=== PATIENT | female | born 1940 | race Hispanic/Latino ===

== ENCOUNTER 2018-12-16 09:30 | Outpatient (CLI) | payer MEDICARE ==
[2018-12-16 09:52] LABS: Hematocrit 41.2 % (30.3-42.9); Hemoglobin 13.7 gm/dl (10.1-14.3); Mean Corpuscular HGB Conc 33 % (30-34); Mean Corpuscular Volume 88 fl (79-97); Platelet Count 272 K/mm3 (140-440); Red Blood Count 4.67 M/mm3 (3.65-5.03); Red Cell Distribution Width 14.1 % (13.2-15.2)
[2018-12-16 10:14] LABS: Erythrocyte Sedimentation Rate 15 mm/Hr (0-20)
[2018-12-16 10:21] LABS: Alanine Aminotransferase 19 units/L (7-56); Albumin 4.5 g/dL (3.9-5); BUN/Creatinine Ratio 20; Blood Urea Nitrogen 14 mg/dL (7-17); Calcium 9.2 mg/dL (8.4-10.2); Hemolysis Index 2
== END 2018-12-16 09:31 | disposition home or self-care (01) ==
LOC: LAB 09:30
PROVIDERS: ATTEND Specialist
DX: M31.6 Other giant cell arteritis (principal)
CPT/HCPCS: 36415; 80053; 85027; 85652

== ENCOUNTER 2021-06-16 10:28 | Outpatient (CLI) | payer MEDICARE ==
[2021-06-16 11:10] LABS: Basophils % (Auto) 0.6 % (0.0-1.8); Eosinophils % (Auto) 0.3 % (0.0-4.3); Hematocrit 42.7 % (30.3-42.9); Hemoglobin 13.6 gm/dl (10.1-14.3); Lymphocytes % (Auto) 29.7 % (13.4-35.0); Mean Corpuscular HGB Conc 32 % (30-34); Mean Corpuscular Volume 87 fl (79-97); Monocytes # (Auto) 0.4 K/mm3 (0.0-0.8); Monocytes % (Auto) 6.4 % (0.0-7.3); Platelet Count 376 K/mm3 (140-440); Red Blood Count 4.89 M/mm3 (3.65-5.03); Red Cell Distribution Width 14.5 % (13.2-15.2)
[2021-06-16 11:28] LABS: Alanine Aminotransferase 18 units/L (7-56); Albumin 4.5 g/dL (3.9-5); BUN/Creatinine Ratio 18; Blood Urea Nitrogen 14 mg/dL (7-17); Calcium 9.4 mg/dL (8.4-10.2); Hemolysis Index 7
[2021-06-16 11:30] LABS: Erythrocyte Sedimentation Rate 20 mm/Hr (0-20)
[2021-06-20 05:34] LABS: ANA Screen, IFA Negative (Negative)
[2021-06-20 17:47] LABS: Albumin 4.5 g/dL (3.8-4.8)
[2021-06-21 17:10] LABS: Vitamin D, 25-OH, D2 <4 ng/mL
== END 2021-06-16 10:29 | disposition home or self-care (01) ==
LOC: LAB 10:28
PROVIDERS: ATTEND Specialist
DX: G61.9 Inflammatory polyneuropathy, unspecified (principal); E11.42 Type 2 diabetes mellitus with diabetic polyneuropathy; A53.9 Syphilis, unspecified
CPT/HCPCS: 36415; 80053; 82306; 82607; 83036; 83921; 84165; 85025; 85652; 86038; 86225; 86334; 86592